=== PATIENT | male | born 1945 | race Caucasian/White ===

== ENCOUNTER 2016-04-17 14:30 | Observation (INO) | payer MEDICARE, BC ==
[2016-04-17 15:21] LABS: Hematocrit 38 % (42-52); Hemoglobin 12.8 g/dl (14.0-18.0); Mean Corpuscular HGB Conc 34 g/dl (31-36); Mean Corpuscular Hemoglobin 30 pg (27-31); Mean Corpuscular Volume 90 fL (80-94); Mean Platelet Volume 8 um3 (7.4-10.4); Red Cell Distribution Width 14 % (10.5-15); White Blood Count 8.2 10^3/ul (3.5-10.8)
[2016-04-17 15:37] LABS: Albumin 3.5 g/dL (3.2-5.2); BUN/Creatinine Ratio 17.1 (8-20); Calcium 9.1 mg/dL (8.6-10.3); EGFR African American 119.1 (>60); EGFR Non-African American 92.6 (>60); Globulin 3.3 g/dL (2-4); Potassium 3.3 mmol/L (3.5-5.0); Total Bilirubin 0.4 mg/dL (0.2-1.0); Total Protein 6.8 g/dL (6.4-8.9)
[2016-04-17] MEDS ORDERED: Enoxaparin(*) 80 MG/0.8 ML SYR SUBCUT ONE (16:23)
[2016-04-17] MEDS ORDERED: Potassium Chlor TAB* 20 MEQ TAB.ER PO ONE (17:13)
--- NOTE | 2016-04-17 18:19 | ED ---
Anuj Jasso Adam, scribed for Baldo Burns MD on 04/17/16 at 1449 . Respiratory - HPI Summary HPI Summary: Pt is a 70 year old male presenting with SOB and reported positive PE. Pt states that he had a CT scan at [place] ([address]) this morning and Dr. Lugo called him 45 minutes ago and told him he had a positive PE. Pt states that he has had PNA for [address] Lugo wanted to do a scan because of the persistent SOB and slow recovery. He denies any pain or cough. He denies any recent travel. PMHx of HTN (on Atenolol). No surgical Hx. Former tobacco use. Pt quit alcohol 1 month ago. FMHx of dementia (mother's side). - History of Current Complaint Chief Complaint: EDShortnessOfBreath Stated Complaint: SOB Time Seen by Provider: 04/17/16 14:42 Hx Obtained From: Patient Onset/Duration: Gradual Onset, Lasting Hours, Still Present Timing: Constant Initial Severity: Moderate Current Severity: Moderate Pain Intensity: 0 Character: Dyspnea at Rest Sputum Amount: None Aggravating Factor(s): Nothing Alleviating Factor(s): Nothing Associated Signs and Symptoms: SOB - Allergy/Home Medications Allergies/Adverse Reactions: Allergies Allergy/AdvReac Type Severity Reaction Status Date / Time No Known Allergies Allergy Verified 05/10/14 06:29 Home Medications: Home Medications Atenolol [Tenormin 100 MG] 100 mg PO DAILY 04/17/16 [History Confirmed 04/17/16] PMH/Surg Hx/FS Hx/Imm Hx Cardiovascular History: Reports: Hx Hypertension - CONTROL WITH MEDS Musculoskeletal History: Reports: Hx Arthritis Sensory History: Reports: Hx Cataracts - BILATERAL, Hx Contacts or Glasses - GLASSES Denies: Hx Hearing Aid Opthamlomology History: Reports: Hx Cataracts - BILATERAL, Hx Contacts or Glasses - GLASSES - Surgical History Surgery Procedure, Year, and Place: APPENDECTOMY, AGE 10 Hx Anesthesia Reactions: No Infectious Disease History: No Infectious Disease History: Denies: Traveled Outside the [place] in Last 30 Days - Family History Known Family History: Positive: Other - Dementia (mother's side) - Social History Occupation: Retired Lives: Alone Alcohol Use: None Alcohol Amount: Quit 1 month ago Hx Substance Use: No Substance Use Type: Reports: None Hx Tobacco Use: Yes Smoking Status (MU): Former Smoker Amount Used/How Often: 2 PPD Length of Time of Smoking/Using Tobacco: 10 YEARS Have You Smoked in the Last Year: No Review of Systems Negative: Chest Pain Positive: Shortness Of Breath. Negative: Cough Musculoskeletal: Negative All Other Systems Reviewed And Are Negative: Yes Physical Exam - Summary Physical Exam Summary: VITAL SIGNS: Reviewed. GENERAL: Patient is a well developed and nourished male who is lying comfortable in the stretcher. Patient is not in any acute respiratory distress. HEAD AND FACE: No signs of trauma. No ecchymosis, hematomas or skull depressions. No sinus tenderness. EYES: PERRLA, EOMI x 2, No injected conjunctiva, no nystagmus. EARS: Hearing grossly intact. Ear canals and tympanic membranes are within normal limits. MOUTH: Oropharynx within normal limits. NECK: Supple, trachea is midline, no adenopathy, no JVD, no carotid bruit, no c- spine tenderness, neck with full ROM. CHEST: Symmetric, no tenderness at palpation LUNGS: Clear to auscultation bilaterally. No wheezing or crackles. CVS: Regular rate and rhythm, S1 and S2 present, no murmurs or gallops appreciated. ABDOMEN: Soft, non-tender. No signs of distention. No rebound no guarding, and no masses palpated. Bowel sounds are normal. EXTREMITIES: FROM in all major joints, no edema, no cyanosis or clubbing. NEURO: Alert and oriented x 3. No acute neurological deficits. Speech is normal and follows commands. SKIN: Dry and warm Triage Information Reviewed: Yes Vital Signs On Initial Exam: Initial Vitals Temp Pulse Resp BP Pulse Ox 98.1 F 73 20 145/71 100 04/17/16 14:32 04/17/16 14:32 04/17/16 14:32 04/17/16 14:32 04/17/16 14:32 Vital Signs Reviewed: Yes Diagnostics - Vital Signs Vital Signs Temp Pulse Resp BP Pulse Ox 04/17/16 14:32 98.1 F 73 20 145/71 100 - Laboratory Lab Results: Lab Results 04/17/16 04/17/16 04/17/16 Range/Units 15:00 15:00 15:00 WBC 8.2 (3.5-10.8) 10^3/ul RBC 4.20 (4.0-5.4) 10^6/ul Hgb 12.8 L (14.0-18.0) g/dl Hct 38 L (42-52) % MCV 90 (80-94) fL MCH 30 (27-31) pg MCHC 34 (31-36) g/dl RDW 14 (10.5-15) % Plt Count 293 (150-450) 10^3/ul MPV 8 (7.4-10.4) um3 Neut % (Auto) 55.0 (38-83) % Lymph % (Auto) 22.0 L (25-47) % Ramsey % (Auto) 15.4 H (1-9) % Eos % (Auto) 6.8 H (0-6) % Baso % (Auto) 0.8 (0-2) % Absolute Neuts (auto) 4.5 (1.5-7.7) 10^3/ul Absolute Lymphs (auto) 1.8 (1.0-4.8) 10^3/ul Absolute Monos (auto) 1.3 H (0-0.8) 10^3/ul Absolute Eos (auto) 0.6 (0-0.6) 10^3/ul Absolute Basos (auto) 0.1 (0-0.2) 10^3/ul Absolute Nucleated RBC 0 10^3/ul Nucleated RBC % 0 INR (Anticoag Therapy) 1.10 (0.89-1.11) APTT 27.4 (26.0-36.3) seconds Sodium 136 (133-145) mmol/L Potassium 3.3 L (3.5-5.0) mmol/L Chloride 101 (101-111) mmol/L Carbon Dioxide 28 (22-32) mmol/L Anion Gap 7 (2-11) mmol/L BUN 14 (6-24) mg/dL Creatinine 0.82 (0.67-1.17) mg/dL Est GFR ( Amer) 119.1 (>60) Est GFR (Non-Af Amer) 92.6 (>60) BUN/Creatinine Ratio 17.1 (8-20) Glucose 78 (70-100) mg/dL Calcium 9.1 (8.6-10.3) mg/dL Total Bilirubin 0.40 (0.2-1.0) mg/dL AST 18 (13-39) U/L ALT 13 (7-52) U/L Alkaline Phosphatase 240 H (34-104) U/L Total Protein 6.8 (6.4-8.9) g/dL Albumin 3.5 (3.2-5.2) g/dL Globulin 3.3 (2-4) g/dL Albumin/Globulin Ratio 1.1 (1-3) Result Diagrams: 04/17/16 15:00 04/17/16 15:00 Lab Statement: Any lab studies that have been ordered have been reviewed, and results considered in the medical decision making process. - Additional Comments Diagnostic Additional Comments: CT CHEST ABDOMEN PELVIS W CONTRAST (FROM [facility], ORDERED BY DR. 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 BILATERAL SEGMENTAL AND SUBSEGMENTAL PULMONARY EMBOLI. URGENCY: CRITICAL. THIS REPORT CONTAINS CRITICAL RESULTS WHICH REQUIRE IMMEDIATE ACTION. DISCUSSED WITH DR. LUGO AT 04/17/2016 1:16 PM. Disposition - Course Course Of Treatment: Pt is a 70 year old male presenting with SOB and reported positive PE. Pt states that he had a CT scan at [place] ([facility]) this morning and Dr. Lugo called him 45 minutes ago and told him he had a positive PE. Pt states that he has had PNA for [address] Lugo wanted to do a scan because of the persistent SOB and slow recovery. He denies any pain or cough. He denies any recent travel. PMHx of HTN (on Atenolol). No surgical Hx. No tobacco use. Pt quit alcohol 1 month ago. FMHx of dementia ( mother's side). BW is WNL except for mild anemia and potassium of 3.3. CT of the chest done at [place] shows that the pt has malignant pleural effusions and pulmonary embolus. Therefore the pt was started on Lovenox. The pt continues to be hemodynamically stable and A&Ox3. I discussed the case with Dr. Gavin who admitted the pt for further work-up and management. - Differential Dx - Cardiopulmonary Differential Diagnoses - Cardiopulmonary: Asthma, CHF, Chest Wall Pain, Pleurisy , Pulmonary Edema, Pulmonary Embolism - Diagnoses Provider Diagnoses: Pulmonary embolus, Malignant pleural effusion - Physician Notifications Discussed Care Of Patient With: Dr. Gavin (Hospitalist) at 16:26. Patient will be admitted. Discharge - Discharge Plan Condition: Stable Disposition: ADMITTED TO [facility] documentation as recorded by the Anuj abarca Adam accurately reflects the service I personally performed and the decisions made by Grant tapia Walter, MD.
--- NOTE | 2016-04-17 20:26 | RAD ---
Indication: Dyspnea, pulmonary embolism confirmed on CT. Pulmonary metastasis. Currently asymptomatic. Comparison: No previous exams available on the [facility] PACS. Technique: Upright AP 1923 hours Report: RIGHT larger than LEFT small dependent pleural effusions with associated basilar atelectasis. Prominent interstitial markings. Innumerable bilateral small pulmonary nodules corresponding with history of pulmonary metastatic disease. Negative for pneumothorax. Negative for cardiomegaly. Prominent mildly ill-defined central pulmonary vasculature. IMPRESSION: 1. Innumerable bilateral small pulmonary nodules corresponding with history of pulmonary metastatic disease. 2. RIGHT larger than LEFT small dependent pleural effusions with associated basilar atelectasis. 3. Mild pulmonary vascular congestion not excluded.
--- NOTE | 2016-04-17 22:00 | HP ---
HISTORY AND PHYSICAL: DATE OF ADMISSION: 04/17/16 PRIMARY CARE PHYSICIAN: Dr. Lugo. CHIEF COMPLAINT: Abnormal CT scan. HISTORY OF PRESENT ILLNESS: Mr. Polk is a 70-year-old male with past medical history of hypertension who presents to the hospital after he was instructed to by his PCP after he had a CTA done today. The patient states over the past month or so, he has had an ongoing pneumonia. He has had few different courses of antibiotics the last stopped about 10 days ago. He states that he had been coughing and felt fatigued, weakness, and decreased appetite. He did note that he had coughed up some blood tinged sputum and at one time coughed up an entire blood clot. He says he has felt somewhat better after the last course of antibiotics. He denies any fever or night sweats. He has noticed a 10-pound weight loss since the beginning of March. He states that his PCP was concerned about persistent elevated alk phos that he has had on his labs since his wellness exam sometime ago. He stated that this prompted CT of the chest, abdomen and pelvis that was done today. CT scan showed multiple segmental and subsegmental pulmonary emboli as well as some lesions in his spine , ribs, and sternum that are concerning for possible metastatic disease. He also has some lymphadenopathy in the abdomen and pelvis. The patient states he has a history of an enlarged prostate and has urinary frequency. He is up to date on colonoscopy, last was 5 years ago and he reported no issues. In the emergency department, the patient got Lovenox subcu and some supplemental potassium. Hospitalist service was called for admission. PAST MEDICAL HISTORY: Hypertension, macular puckering. PAST SURGICAL HISTORY: Cataract removal. HOME MEDICATIONS: Atenolol 100 mg by mouth daily which was changed recently from his combination pill atenolol/chlorthalidone. ALLERGIES: The patient states no known drug allergies. FAMILY HISTORY: Mother with dementia. No history of diabetes, CAD, or cancer in the family. SOCIAL HISTORY: The patient smoked for 6 to 7 years about a pack and a half per day. Denies any current alcohol use. He states he was drinking 2 to 4 glasses of wine a day; however, cut this down in the past few months and has not drink at all. He denies any illicit drug use. He lives at home with his 2 cats. He states he has no family in the area, but he lives in the [facility]. REVIEW OF SYSTEMS: A 12-point review of systems is negative. PHYSICAL EXAMINATION GENERAL: The patient is an elderly male, lying in bed, in no apparent distress. VITAL SIGNS: On admission, temperature 98.1, heart rate is 73, respiratory rate of 20, O2 saturation 100% on room air, blood pressure 145/71. HEENT: Anicteric sclerae. Moist mucous membranes. NECK: No cervical adenopathy. LUNGS: Clear to auscultation bilaterally; however, some diminished breath sounds in the right base. CARDIOVASCULAR: Regular rate and rhythm. S1, S2 present. No murmurs, gallops , or rubs. ABDOMEN: Soft, nontender, nondistended. Bowel sounds positive. EXTREMITIES: No cyanosis, clubbing, or edema. NEUROLOGIC: The patient is alert and oriented x3. No focal neurological deficits. LABS AND DIAGNOSTICS: White blood cell count 8.2, hematocrit of 38, platelets of 293. INR of 1.1. Sodium of 136, potassium 3.3, chloride of 101, carbon dioxide of 28, BUN of 14, creatinine of 0.82, glucose of 78. Alk phos of 240. CT scan done at [facility] did not have the actual images; however, the report shows multiple bilateral pulmonary emboli, a right loculated pleural effusion, bony lesions in the sternum, ribs and thoracolumbar spine and some increased lymphadenopathy in the abdomen and pelvis. ASSESSMENT AND PLAN: Bilateral pulmonary emboli, right pleural effusion and what appears to be likely metastatic disease to the spine, ribs and sternum in a 70-year- old man with a past medical history of hypertension. 1. Likely metastatic disease certainly concerning for cancer possibly prostate with the distribution. We will order an ultrasound-guided thoracentesis which would hopefully be done tomorrow to aid in diagnosis of this malignancy. The patient is relatively asymptomatic at time. 2. Bilateral pulmonary emboli. The patient received one dose of subcu Lovenox in the emergency department at around 1700. For now, we will hold off an a.m. dose so that the patient can have this procedure tomorrow and can restart anticoagulation afterwards. He does not seem to be symptomatic at all from his pulmonary emboli. 3. Hypertension. Continue the patient's home atenolol. 4. DVT prophylaxis. Received subcu Lovenox. Will resume tomorrow. 5. Code status: The patient is a full code. TIME SPENT: Total time spent on this admission 45 minutes with over half the time spent [id number] with the patient in counseling and coordinating care. CC: Dr. Lugo* [id number]/CPS #: [id number] MTDD
[2016-04-18] MEDS ORDERED: Atenolol TAB* 50 MG PO SCH (09:00)
--- NOTE | 2016-04-18 11:52 | DCNOTE ---
Patient seen this morning. Denies chest pain, SOB. Ambulated around the unit with no issues. On exam, RRR, s1 and s2 present, no m/g/r, no LE edema Patient does not want to wait for thoracentesis. Would like to go home and continue work-up as outpatient. Will discharge home on Lovenox injections. Will need close PCP follow-up to try to determine best way to determine underlying diagnosis/source of presumed malignancy.
[2016-04-18] MEDS ORDERED: Enoxaparin(*) 80 MG/0.8 ML SYR SUBCUT SCH (12:00)
[2016-04-18 12:03] LABS: Carcinoembryonic Antigen 1.3 ng/mL (0.1-5.0)
[2016-04-18 12:14] VITALS: BP 118/62
--- NOTE | 2016-04-19 05:10 | DS ---
DISCHARGE SUMMARY: DATE OF ADMISSION: 04/17/16 DATE OF DISCHARGE: 04/18/16 PRIMARY CARE PHYSICIAN: Dr. Lugo. PRINCIPAL DISCHARGE DIAGNOSIS: Bilateral pulmonary emboli, possible metastatic disease. DISCHARGE MEDICATION REGIMEN: 1. Atenolol 100 mg by mouth daily. 2. Lovenox 80 mg subcu every 12 hours. STUDIES DONE DURING HOSPITALIZATION: Chest x-ray, impression: Innumerable bilateral small pulmonary nodules corresponding with history of pulmonary metastatic disease, right larger than left small dependent pleural effusions with associated bibasilar atelectasis, mild pulmonary vascular congestion not excluded. HISTORY OF PRESENT ILLNESS AND HOSPITAL SUMMARY: Please see the full history and physical done by me for full details. Briefly, Mr. Polk is a 70-year- old male with past medical history of hypertension, who presented to the hospital after he was instructed to by his PCP after a CTA showed bilateral pulmonary emboli. The patient was observed in the hospital, started on Lovenox shots. CT scan images were not sent here; however, the report which showed bilateral pulmonary emboli right-sided pleural effusion; possible bone mets to the sternum, ribs, thoracolumbar spine; increased lymphadenopathy in the abdomen and pelvis. Due to concern for possible malignancy, the patient was scheduled for a thoracentesis; however, due to delays in obtaining the outpatient imaging, the patient did not want to wait for the procedure and preferred to continue workup as an outpatient. He was discharged on subcu Lovenox for his emboli and will follow up with his PCP. Please note that after the patient was discharged, his PSA resulted which was quite elevated indicating possible prostatic source. TIME SPENT: Total time spent on this discharge 45 minutes. This is a summary of the hospitalization. Please see the full medical record for further details. CC: Dr. Lugo* [id number]/CPS #: [id number] [facility]
== END 2016-04-18 14:05 | disposition home or self-care (01) ==
LOC: ED 14:30 → MEDTELE 16:24 → INTOOBSV 16:24
PROVIDERS: ADMIT Internal Medicine; ATTEND Hospitalist
DX: I26.99 Other pulmonary embolism without acute cor pulmonale (principal); I10 Essential (primary) hypertension; J91.0 Malignant pleural effusion; R06.02 Shortness of breath; M89.9 Disorder of bone, unspecified; R59.1 Generalized enlarged lymph nodes; Z87.891 Personal history of nicotine dependence; Z79.899 Other long term (current) drug therapy; R97.20 Elevated prostate specific antigen [PSA]
CPT/HCPCS: 36415; 71010; 80053; 82378; 84153; 85025; 85610; 85730; 96372; 99284; A9270-GY; G0103; G0378; J1650